=== PATIENT | female | born 1955 | race Caucasian/White ===

== ENCOUNTER 2016-04-13 08:07 | Day surgery (SDC) | payer BC ==
[2016-04-13 08:42] VITALS: BMI 41.1
[2016-04-13] MEDS ORDERED: PROPOFOL 20 ML ONE ×2 (09:38)
[2016-04-13 10:27] VITALS: TEMP 98
[2016-04-13 11:15] VITALS: BP 135/65; PULSE 60
--- NOTE | 2016-04-14 10:49 | PATH ---
Surgical Pathology Report Patient Name: ANGI ALEXANDRA [facility]. Rec. #: [id number] /Age/Gender: 1955 (Age: 60) / F Account: [id number] Location: U-ENDOSCOPY Taken: 04/13/2016 Received: 04/13/2016 Reported: 04/14/2016 Physicians: Isai Collier D.O. Specimen(s) Received A: BX TRANSVERSE COLON POLYP B: BX DESCENDING COLON POLYP Clinical History Screening colonoscopy Colon polyps Final Diagnosis A. COLON, TRANSVERSE, BIOPSY: TUBULAR ADENOMA. B. COLON, DESCENDING, BIOPSY: TUBULAR ADENOMA. Electronically Signed Philip Israel M.D. Gross Description A. Received in formalin, labeled "transverse colon polyp biopsy" are 3 henson, irregular portions of soft tissue ranging from 0.1-0.2 cm. in greatest dimension. The specimens are submitted in toto in one cassette. B. Received in formalin, labeled "biopsy descending colon polyp" is a henson, irregular portion of soft tissue measuring 0.3 cm. in greatest dimension. The specimen is submitted in toto in one cassette. /04/13/2016 saudi04/13/2016
== END 2016-04-13 11:17 | disposition home or self-care (01) ==
LOC: JASU-ENDO 08:07
PROVIDERS: ATTEND Internal Medicine Gastroenterology
PROC: 0DBL8ZX Excision of Transverse Colon, Via Natural or Artificial Opening Endoscopic, Diagnostic (ICD-10-PCS; 2016-04-13)
PROC: 0DBM8ZX Excision of Descending Colon, Via Natural or Artificial Opening Endoscopic, Diagnostic (ICD-10-PCS; principal; 2016-04-13 10:00)
DX: Z12.11 Encounter for screening for malignant neoplasm of colon (principal); D12.4 Benign neoplasm of descending colon; D12.3 Benign neoplasm of transverse colon; K64.8 Other hemorrhoids
CPT/HCPCS: 88305-TC

== ENCOUNTER 2016-12-03 00:30 | Emergency (ER) | payer OTHER, BC ==
[2016-12-03 00:59] VITALS: BP 149/100; PULSE 81; TEMP 97.5; BMI 40.7
[2016-12-03 01:42] LABS: BASOPHIL 0.4 % (0-2.0); EOSINOPHIL 2.9 % (0-4.5); MCH 29.5 pg (25.7-33.7); MCHC 33.5 g/dl (32.0-36.0); MEAN CELL VOLUME 87.9 fl (80-96); MEAN PLT VOLUME 9.6 fl (7.5-11.1); NEUTROPHILS 52.2 % (42.8-82.8); PLATELET COUNT 173 K/MM3 (134-434); RDW 13.2 % (11.6-15.6); WHITE BLOOD COUNT 5.1 K/mm3 (4.0-10.0)
[2016-12-03 01:44] LABS: URINE APPEARANCE CLEAR; URINE BILIRUBIN NEGATIVE (NEGATIVE); URINE BLOOD NEGATIVE (NEGATIVE); URINE COLOR COLORLESS; URINE GLUCOSE (UA) NEGATIVE (NEGATIVE); URINE KETONE NEGATIVE (NEGATIVE); URINE LEUK ESTERASE NEGATIVE (NEGATIVE); URINE NITRITE NEGATIVE (NEGATIVE); URINE PROTEIN NEGATIVE (NEGATIVE); URINE UROBILINOGEN NEGATIVE mg/dL (0.2-1.0)
[2016-12-03 02:10] LABS: ALBUMIN 3.7 g/dl (3.4-5.0); ANION GAP 8 (8-16); CALCIUM 8.8 mg/dL (8.5-10.1); CO2 28 mmol/L (21-32); CREATININE 0.5 mg/dL (0.55-1.02); GLUCOSE,RANDOM 117 mg/dL (74-106); SGOT/AST 17 U/L (15-37); SGPT/ALT 21 U/L (12-78)
[2016-12-03 02:14] LABS: ALK PHOS 68 U/L (45-117); BILIRUBIN,TOTAL 1.2 mg/dL (0.2-1.0); CPK 94 IU/L (26-192); TOT PROT 7.4 g/dl (6.4-8.2); TROPONIN I < 0.02 ng/ml (0.00-0.05)
[2016-12-03] MEDS ORDERED: ACETAMINOPHEN 500 MG TABLET (FP) PO ONE (02:43)
[2016-12-03] MEDS ORDERED: ACETAMINOPHEN 325 MG TABLET (FP) ONE (02:44)
--- NOTE | 2016-12-03 02:46 | PDOC ---
History of Present Illness - General Chief Complaint: Dysphagia Stated Complaint: DIFFICULTY SWALLOWING/ANXIOUS Time Seen by Provider: 12/03/16 00:41 History Source: Patient, Press Leader Used Exam Limitations: Language Barrier - History of Present Illness Initial Comments: 12/03/16 02:44 61yo Female patient w/ PmHx: HLD, HTN, Cholecystectomy, CVA (3 yrs ago) on coumadin presents to ED c/o CP, difficulty swallowing, h/a, dry mouth, left arm , tingling. Patient denies n/v/d, fever, cough, abd pain, back pain, dizziness, or any other complaints at this time. Past History - Travel Traveled outside of the country in the last 30 days: No Close contact w/someone who was outside of country & ill: No - Past Medical History Allergies/Adverse Reactions: Allergies Allergy/AdvReac Type Severity Reaction Status Date / Time No Known Allergies Allergy Verified 12/03/16 00:56 Home Medications: Ambulatory Orders Acetaminophen [Tylenol .Regular Strength -] 650 mg PO Q6H PRN #0 tablet Metoprolol Tartrate [Lopressor -] 50 mg PO BID 30 Days 12/06/13 Apixaban [Eliquis -] 5 mg PO BID tablet 12/31/13 Atorvastatin Ca [Lipitor] 20 mg PO DAILY tablet 12/31/13 Zolpidem Tartrate [Ambien] 10 mg PO HS #5 tablet 12/31/13 Cholecalciferol (Vitamin D3) [Vitamin D3 -] 1,000 unit PO DAILY 04/13/16 Meclizine HCl 12.5 mg PO PRN PRN 04/13/16 Methocarbamol [Robaxin -] 500 mg PO TID #21 tablet 12/03/16 Naproxen [Naprosyn -] 500 mg PO BID #14 tablet 12/03/16 Asthma: Yes Cardiac Disorders: Yes (a fib) CVA: Yes (L hemiparesis) HTN: Yes Hypercholesterolemia: Yes - Surgical History Cholecystectomy: Yes - Suicide/Smoking/Psychosocial Hx Smoking History: Never smoked Have you smoked in the past 12 months: No Information on smoking cessation initiated: No Hx Alcohol Use: No Drug/Substance Use Hx: No Hx Substance Use Treatment: No Review of Systems - Review of Systems Able to Perform ROS?: Yes Is the patient limited Malian proficient: No Constitutional: No: Chills, Fever Respiratory: No: Cough, Shortness of Breath, Wheezing Cardiac (ROS): Yes: Chest Pain ABD/GI: No: Diarrhea, Nausea, Poor Appetite, Poor Fluid Intake, Vomiting, Abdominal cramping Neurological: Yes: Headache All Other Systems: Reviewed and Negative *Physical Exam - Vital Signs Last Vital Signs Temp Pulse Resp BP Pulse Ox 97.5 F L 81 16 149/100 99 12/03/16 00:57 12/03/16 00:57 12/03/16 00:57 12/03/16 00:57 12/03/16 00:57 - Physical Exam General Appearance: Yes: Nourished, Appropriately Dressed. No: Apparent Distress, Mild Distress, Moderate Distress, Severe Distress Neck: positive: Trachea midline, Supple. negative: Stridor, Lymphadenopathy (R) , Lymphadenopathy (L) Respiratory/Chest: positive: Lungs Clear, Normal Breath Sounds. negative: Chest Tender, Respiratory Distress, Accessory Muscle Use, Labored Respiration, Rapid RR, Stridor, Wheezing Cardiovascular: positive: Regular Rhythm, Regular Rate Gastrointestinal/Abdominal: positive: Normal Bowel Sounds, Soft. negative: Distended, Guarding, Rebound, Tenderness Musculoskeletal: positive: Normal Inspection. negative: CVA Tenderness Extremity: positive: Normal Capillary Refill, Normal Inspection, Normal Range of Motion. negative: Pedal Edema, Swelling, Calf Tenderness, Erythema Integumentary: positive: Normal Color, Dry, Warm. negative: Rash Neurologic: positive: lease broker II-XII NML intact, Fully Oriented, Alert, Normal Mood/ Affect, Normal Response, Motor Strength 5/5 ED Treatment Course - LABORATORY CBC & Chemistry Diagram: 12/03/16 01:28 12/03/16 01:28 - ADDITIONAL ORDERS Additional order review: Laboratory Results 12/03/16 12/03/16 01:28 01:28 Sodium 139 Potassium 4.0 Chloride 103 Carbon Dioxide 28 Anion Gap 8 BUN 9 Creatinine 0.5 L Creat Clearance w eGFR > 60 Random Glucose 117 H Calcium 8.8 Total Bilirubin 1.2 H AST 17 ALT 21 Alkaline Phosphatase 68 Creatine Kinase 94 Troponin I < 0.02 Total Protein 7.4 Albumin 3.7 Urine Color Colorless Urine Appearance Clear Urine pH 6.0 Urine Protein Negative Urine Glucose (UA) Negative Urine Ketones Negative Urine Blood Negative Urine Nitrite Negative Urine Bilirubin Negative Urine Urobilinogen Negative 12/03/16 01:28 RBC 4.08 MCV 87.9 MCHC 33.5 RDW 13.2 MPV 9.6 Neutrophils % 52.2 Lymphocytes % 34.3 Monocytes % 10.2 Eosinophils % 2.9 D Basophils % 0.4 - RADIOLOGY Radiology Studies Ordered: Category Date Time Status HEAD CT WITHOUT CONTRAST [CT] Stat CT Scan 12/03/16 01:17 Taken CHEST PA & LAT [RAD] Stat Radiology 12/03/16 01:17 Taken Medical Decision Making - Medical Decision Making 12/03/16 03:15 Results discussed with patient via Double Bottom Driver. Patient to follow up with PMD. *DC/Admit/Observation/Transfer Diagnosis at time of Disposition: Anxiety about health Headache Qualifiers: Headache type: tension-type Headache chronicity pattern: unspecified pattern Intractability: not intractable Qualified Code(s): G44.209 - Tension-type headache, unspecified, not intractable - Discharge Dispostion Disposition: HOME Condition at time of disposition: Improved Admit: No - Prescriptions Prescriptions: Naproxen [Naprosyn -] 500 mg PO BID #14 tablet Methocarbamol [Robaxin -] 500 mg PO TID #21 tablet - Referrals Referrals: Ru Mobley MD [Staff Physician] - - Patient Instructions Printed Discharge Instructions: DI for Headache, DI for Anxiety -- Adult Additional Instructions: Haja un seguimiento con dumont proveedor de atencin primaria maana o dentro de las 72 horas para avtar evaluacin posterior. [place] los medicamentos segn lo prescrito. Descanse mucho. Svetlana, haja un seguimiento con dumont neurlogo o con el Dr. Mobley (Neurologa) con respecto a destiny sntomas. Llame para programar avtar latisha. Regresar si los sntomas empeoran o cualquier preocupacin por avtar evaluacin posterior. Follow up with your primary care provider tomorrow or within 72 hours for further evaluation. Take medications as prescribed. Get plenty rest. Also, follow up with your neurologist or Dr. Mobley (Neurology) regarding your symptoms. Call to schedule appointment. Return if symptoms worsen or any concerns for further evaluation. Print Language: URDU
[2016-12-03] MEDS ORDERED: METHOCARBAMOL 750 MG TAB PO ONE (03:21)
[2016-12-03] MEDS ORDERED: IBUPROFEN 600 MG TABLET (FP) PO ONE ×2 (03:21→03:36)
[2016-12-03] MEDS ORDERED: METHOCARBAMOL 500 MG TABLET ONE (03:36)
--- NOTE | 2016-12-03 09:11 | EKG ---
Test Reason : Blood Pressure : / mmHG Vent. Rate : 077 BPM Atrial Rate : 077 BPM P-R Int : 180 ms QRS Dur : 080 ms QT Int : 396 ms P-R-T Axes : 042 036 043 degrees QTc Int : 448 ms POOR DATA QUALITY, INTERPRETATION MAY BE ADVERSELY AFFECTED NORMAL SINUS RHYTHM NORMAL ECG WHEN COMPARED WITH ECG OF 17-MAR-2014 22:07, NO SIGNIFICANT CHANGE WAS FOUND Confirmed by SARAI BROCK MD ([id number]) on 12/03/2016 9:11:04 AM Referred By: Confirmed By:SARAI BROCK MD
[2016-12-03 13:02] LABS: THYROID STIMULATING HORMONE 1.93 uIU/ml (0.358-3.74)
== END 2016-12-03 04:17 | disposition home or self-care (01) ==
LOC: JER 00:30
DX: G44.209 Tension-type headache, unspecified, not intractable (principal); I10 Essential (primary) hypertension; E78.5 Hyperlipidemia, unspecified; Z79.01 Long term (current) use of anticoagulants; J45.909 Unspecified asthma, uncomplicated; I48.91 Unspecified atrial fibrillation
CPT/HCPCS: 36415; 70450-TC; 71020-TC; 80053; 81003; 84443; 84484; 85025; 93005; 93010; 99281-25

== ENCOUNTER 2018-04-19 07:07 | Day surgery (SDC) | payer OTHER, BC ==
[2018-04-18 16:22] VITALS: BMI 41.3
[2018-04-19 08:45] VITALS: TEMP 97.9
[2018-04-19 09:22] VITALS: BP 123/65; PULSE 62
--- NOTE | 2018-04-20 16:57 | PATH ---
Surgical Pathology Report Patient Name: ANGI ALEXANDRA [facility]. Rec. #: [id number] /Age/Gender: 1955 (Age: 62) / F Account: [id number] Location: U-ENDOSCOPY Taken: 04/19/2018 Received: 04/19/2018 Reported: 04/20/2018 Physicians: Lolita Sewell M.D. Specimen(s) Received A: BX DUODENUM AND BULB B: BX ANTRUM Clinical History Right upper quadrant pain Postoperative diagnosis: Gastritis Final Diagnosis A. DUODENUM AND BULB, BIOPSY: DUODENAL MUCOSA WITH MILD ACUTE AND CHRONIC DUODENITIS. B. STOMACH, ANTRUM, BIOPSY: GASTRIC ANTRAL MUCOSA WITH MILD CHRONIC ACTIVE GASTRITIS. IMMUNOHISTOCHEMICAL STAIN FOR H. PYLORI IS POSITIVE (FEW). Electronically Signed Inocencia Buckner M.D. Gross Description A. Received in formalin, labeled "duodenum and bulb biopsy" are 3 henson, irregular portions of soft tissue averaging 0.3 cm. in greatest dimension. The specimens are submitted in toto in one cassette. B. Received in formalin, labeled "antrum biopsy" are 2 henson, irregular portions of soft tissue measuring 0.2 and 0.5 cm. in greatest dimension. The specimens are submitted in toto in one cassette. 04/19/201804/19/2018
== END 2018-04-19 09:22 | disposition home or self-care (01) ==
LOC: JASU-ENDO 07:07
PROVIDERS: ATTEND Internal Medicine Gastroenterology
PROC: 0DB68ZX Excision of Stomach, Via Natural or Artificial Opening Endoscopic, Diagnostic (ICD-10-PCS; principal; 2018-04-19 08:00)
DX: K29.40 Chronic atrophic gastritis without bleeding (principal)
CPT/HCPCS: 88305-TC; 88342-TC

== ENCOUNTER 2018-12-18 11:14 | Day surgery (SDC) | payer OTHER, BC ==
[2018-12-18 12:10] VITALS: BMI 40.7
[2018-12-18 13:02] VITALS: TEMP 97
[2018-12-18 16:40] VITALS: BP 127/85; PULSE 86
== END 2018-12-18 14:12 | disposition home or self-care (01) ==
LOC: JASU-ENDO 11:14
PROVIDERS: ATTEND Internal Medicine Cardiovascular Disease
PROC: 5A2204Z Restoration of Cardiac Rhythm, Single (ICD-10-PCS; principal; 2018-12-18 11:45)
DX: I48.91 Unspecified atrial fibrillation (principal)
CPT/HCPCS: 92960

== ENCOUNTER 2019-01-15 10:56 | Day surgery (SDC) | payer OTHER, BC ==
[2019-01-15 11:34] VITALS: BMI 38.9
[2019-01-15 13:56] VITALS: BP 117/63; PULSE 59; TEMP 98
--- NOTE | 2019-01-15 15:05 | EKG ---
Test Reason : Blood Pressure : / mmHG Vent. Rate : 052 BPM Atrial Rate : 052 BPM P-R Int : 194 ms QRS Dur : 082 ms QT Int : 450 ms P-R-T Axes : 053 056 058 degrees QTc Int : 418 ms SINUS BRADYCARDIA OTHERWISE NORMAL ECG WHEN COMPARED WITH ECG OF 03-DEC-2016 01:14, VENT. RATE HAS DECREASED BY 25 BPM Confirmed by ZEUS DYE MD ([id number]) on 01/15/2019 3:05:22 PM Referred By: Confirmed By:ZEUS DYE MD
== END 2019-01-15 13:58 | disposition home or self-care (01) ==
LOC: JASU-ENDO 10:56
PROVIDERS: ATTEND Internal Medicine Cardiovascular Disease
PROC: 5A2204Z Restoration of Cardiac Rhythm, Single (ICD-10-PCS; principal; 2019-01-15 12:00)
DX: I48.91 Unspecified atrial fibrillation (principal)
CPT/HCPCS: 92960; 93005; 93010

== ENCOUNTER 2020-06-22 05:32 | Emergency (ER) | payer OTHER, BC ==
[2020-06-22] MEDS ORDERED: BENZOCAINE/MENTH/CETYLPYRD CL 1 EACH LOZENGE MM ONE ×2 (06:16→06:21)
[2020-06-22 06:28] VITALS: BP 117/71; TEMP 98.7; BMI 40.2
[2020-06-22] MEDS ORDERED: LIDOCAINE 5% TOPICAL PATCH TP ONE (06:47)
[2020-06-22 07:02] VITALS: PULSE 89
[2020-06-22] MEDS ORDERED: LIDOCAINE 5% TOPICAL PATCH ONE (07:02)
[2020-06-22] MEDS ORDERED: ACETAMINOPHEN 325 MG TABLET (FP) ONE (07:08)
[2020-06-22] MEDS ORDERED: ACETAMINOPHEN 500 MG TABLET (FP) PO ONE (07:08)
[2020-06-22] MEDS ORDERED: LIDOCAINE PATCH REMOVAL MC ONE (19:00)
== END 2020-06-22 07:16 | disposition home or self-care (01) ==
LOC: JER 05:32
DX: F41.9 Anxiety disorder, unspecified (principal)
CPT/HCPCS: 99284-25

== ENCOUNTER 2021-09-30 17:21 | Inpatient (IN) | payer OTHER, BC ==
[2021-09-30] MEDS ORDERED: FAMOTIDINE 20 MG/50 ML IVPB 20 MG/50 ML MG IVPB ONE ×2 (18:20→18:41)
[2021-09-30] MEDS ORDERED: MAG HYDROX/AL HYDROX/SIMETH -MYLANTA- ORAL SUSPENSION PO ONE (18:20)
[2021-09-30] MEDS ORDERED: ACETAMINOPHEN 1000 MG/100 ML BAG IVPB ONE (18:20)
[2021-09-30] MEDS ORDERED: ACETAMINOPHEN INJECTION 100 ML IVPB ONE (18:41)
[2021-09-30] MEDS ORDERED: MAG HYDROX/AL HYDROX/SIMETH 30 ML UNIT-DOSE CUP ONE ×2 (18:41→18:42)
[2021-09-30 19:00] LABS: CALCIUM 8.9 mg/dL (8.5-10.1)
[2021-09-30 19:01] LABS: ALBUMIN 3.6 g/dl (3.4-5.0)
[2021-09-30 19:04] LABS: CREATININE 0.7 mg/dL (0.55-1.3)
[2021-09-30 19:06] LABS: BILIRUBIN,TOTAL 1.5 mg/dL (0.2-1); TOT PROT 7.8 g/dl (6.4-8.2)
[2021-09-30 19:09] LABS: N-TERMINAL BNP 856.3 pg/ml (5-125)
[2021-09-30 19:16] LABS: BASO % 0.5 % (0-2.0); EOS % 1.4 % (0-4.5); HEMATOCRIT 36.4 % (32.4-45.2); HEMOGLOBIN 12.1 GM/dL (10.7-15.3); LYMPH % 27.8 % (8-40); MCH 29.5 pg (25.7-33.7); MCHC 33.2 g/dl (32.0-36.0); MEAN CELL VOLUME 88.9 fl (80-96); MEAN PLT VOLUME 9.6 fl (7.5-11.1); MONO % 14.1 % (3.8-10.2); NEUT % 56.2 % (42.8-82.8); PLATELET COUNT 193 10^3/uL (134-434); RBC 4.09 M/mm3 (3.60-5.2); RDW 13.3 % (11.6-15.6); WHITE BLOOD COUNT 4.4 K/mm3 (4.0-10.0)
[2021-09-30] MEDS ORDERED: ASPIRIN 81 MG CHEWABLE TABLETS PO ONE (21:54)
[2021-09-30] MEDS ORDERED: ASPIRIN 81 MG CHEWABLE TABLETS ONE (22:13)
[2021-09-30 22:38] LABS: INR 1.28 (0.83-1.09); PROTHROMBIN TIME (PATIENT) 14.7 SEC (9.7-13.0)
[2021-09-30 22:41] LABS: ACTIVATED PTT 34.8 SECONDS (25.2-36.5)
[2021-09-30] MEDS ORDERED: METOPROLOL TARTRATE 5 MG/5 ML VIAL IVPUSH PRN (23:12)
[2021-10-01] MEDS ORDERED: FUROSEMIDE 40 MG/4 ML INJECTABLE VIAL IVPUSH ONE (00:40)
[2021-10-01 06:57] LABS: BASO % 0.4 % (0-2.0); EOS % 2.9 % (0-4.5); HEMOGLOBIN 12.5 GM/dL (10.7-15.3); LYMPH % 42.5 % (8-40); MCH 29.2 pg (25.7-33.7); MCHC 32.8 g/dl (32.0-36.0); MEAN CELL VOLUME 88.9 fl (80-96); MEAN PLT VOLUME 11.1 fl (7.5-11.1); MONO % 9.7 % (3.8-10.2); NEUT % 44.5 % (42.8-82.8); PLATELET COUNT 153 10^3/uL (134-434); RBC 4.28 M/mm3 (3.60-5.2); RDW 14.1 % (11.6-15.6); WHITE BLOOD COUNT 4.7 K/mm3 (4.0-10.0)
[2021-10-01 07:17] LABS: CALCIUM 9.3 mg/dL (8.5-10.1)
[2021-10-01 07:18] LABS: ALBUMIN 3.8 g/dl (3.4-5.0); BLOOD UREA NITROGEN 8.5 mg/dL (7-18); MAGNESIUM 2.2 mg/dL (1.8-2.4)
[2021-10-01 07:21] LABS: CREATININE 0.7 mg/dL (0.55-1.3); PHOSPHOROUS 3.9 mg/dL (2.5-4.9)
[2021-10-01 07:23] LABS: BILIRUBIN,TOTAL 1.7 mg/dL (0.2-1); TOT PROT 8.2 g/dl (6.4-8.2)
[2021-10-01 07:24] LABS: CHOLESTEROL 130 mg/dL (50-200)
[2021-10-01 07:26] LABS: LDL CHOLESTEROL (ONLY SJRH) 58 mg/dL (5-100); TRIGLYCERIDES 84 mg/dL (0-150)
[2021-10-01 07:29] LABS: HDL CHOLESTEROL 66 mg/dL (40-60)
[2021-10-01] MEDS ORDERED: APIXABAN 5 MG TABLET ONE (10:28)
[2021-10-01] MEDS: APIXABAN 5 MG TABLET PO SCH ×2 (10:37→22:38)
[2021-10-01] MEDS ORDERED: MAG HYDROX/AL HYDROX/SIMETH 30 ML UNIT-DOSE CUP ONE (14:22)
[2021-10-01] MEDS: ATORVASTATIN CA 20 MG TABLET (FP) PO SCH (22:38)
[2021-10-01 23:26] VITALS: BMI 40.7
[2021-10-02] MEDS: APIXABAN 5 MG TABLET PO SCH ×2 (09:07→21:47)
[2021-10-02] MEDS ORDERED: metoPROLOL SUCCINATE 25 MG TAB.SR.24H (FP) PO ONE ×2 (13:15→15:30)
[2021-10-02] MEDS: SOTALOL HCL 80 MG TABLET (FP) PO SCH (21:47)
[2021-10-02] MEDS: ATORVASTATIN CA 20 MG TABLET (FP) PO SCH (21:48)
[2021-10-03] MEDS: SOTALOL HCL 80 MG TABLET (FP) PO SCH ×2 (09:42→21:25)
[2021-10-03] MEDS: APIXABAN 5 MG TABLET PO SCH ×2 (09:42→21:24)
[2021-10-03] MEDS: PREGABALIN 25 MG CAPSULE PO SCH (21:24)
[2021-10-03] MEDS: ATORVASTATIN CA 20 MG TABLET (FP) PO SCH (21:24)
[2021-10-04 07:45] LABS: BASO % 0.4 % (0-2.0); EOS % 4.8 % (0-4.5); HEMATOCRIT 34.8 % (32.4-45.2); HEMOGLOBIN 11.5 GM/dL (10.7-15.3); LYMPH % 42.8 % (8-40); MCH 29.4 pg (25.7-33.7); MEAN CELL VOLUME 89.3 fl (80-96); MEAN PLT VOLUME 10.3 fl (7.5-11.1); MONO % 12.1 % (3.8-10.2); NEUT % 39.9 % (42.8-82.8); PLATELET COUNT 168 10^3/uL (134-434); RDW 13.7 % (11.6-15.6); WHITE BLOOD COUNT 4.7 K/mm3 (4.0-10.0)
[2021-10-04 07:50] LABS: CALCIUM 8.8 mg/dL (8.5-10.1)
[2021-10-04 07:51] LABS: BLOOD UREA NITROGEN 12.1 mg/dL (7-18); MAGNESIUM 2.4 mg/dL (1.8-2.4)
[2021-10-04 07:54] LABS: CREATININE 0.6 mg/dL (0.55-1.3); PHOSPHOROUS 4.3 mg/dL (2.5-4.9)
[2021-10-04] MEDS: SOTALOL HCL 80 MG TABLET (FP) PO SCH ×2 (09:26→21:53)
[2021-10-04] MEDS: APIXABAN 5 MG TABLET PO SCH ×2 (09:26→21:53)
[2021-10-04] MEDS: ATORVASTATIN CA 20 MG TABLET (FP) PO SCH (21:53)
[2021-10-04] MEDS: PREGABALIN 25 MG CAPSULE PO SCH (21:53)
[2021-10-05 08:15] LABS: HEMATOCRIT 34.8 % (32.4-45.2); HEMOGLOBIN 11.5 GM/dL (10.7-15.3); MCH 29.5 pg (25.7-33.7); MCHC 33.1 g/dl (32.0-36.0); MEAN CELL VOLUME 89.3 fl (80-96); MEAN PLT VOLUME 10.3 fl (7.5-11.1); PLATELET COUNT 167 10^3/uL (134-434); RDW 13.3 % (11.6-15.6); WHITE BLOOD COUNT 4.6 K/mm3 (4.0-10.0)
[2021-10-05 08:38] LABS: ALBUMIN 3.4 g/dl (3.4-5.0); CALCIUM 8.8 mg/dL (8.5-10.1); MAGNESIUM 2.4 mg/dL (1.8-2.4)
[2021-10-05 08:41] LABS: BLOOD UREA NITROGEN 13.5 mg/dL (7-18); CREATININE 0.6 mg/dL (0.55-1.3)
[2021-10-05 08:43] LABS: BILIRUBIN,TOTAL 1.4 mg/dL (0.2-1)
[2021-10-05] MEDS: APIXABAN 5 MG TABLET PO SCH ×2 (10:19→21:33)
[2021-10-05] MEDS: SOTALOL HCL 80 MG TABLET (FP) PO SCH ×2 (10:19→21:34)
[2021-10-05] MEDS: PREGABALIN 25 MG CAPSULE PO SCH (21:32)
[2021-10-05] MEDS: ATORVASTATIN CA 20 MG TABLET (FP) PO SCH (21:33)
[2021-10-06 07:20] LABS: BASO % 0.4 % (0-2.0); EOS % 2.9 % (0-4.5); HEMATOCRIT 34.8 % (32.4-45.2); HEMOGLOBIN 11.4 GM/dL (10.7-15.3); LYMPH % 41.6 % (8-40); MCH 29.3 pg (25.7-33.7); MCHC 32.7 g/dl (32.0-36.0); MEAN CELL VOLUME 89.4 fl (80-96); MEAN PLT VOLUME 10.7 fl (7.5-11.1); MONO % 10.4 % (3.8-10.2); NEUT % 44.7 % (42.8-82.8); PLATELET COUNT 168 10^3/uL (134-434); RBC 3.89 M/mm3 (3.60-5.2); RDW 13.4 % (11.6-15.6); WHITE BLOOD COUNT 4.6 K/mm3 (4.0-10.0)
[2021-10-06 07:42] LABS: CALCIUM 8.8 mg/dL (8.5-10.1)
[2021-10-06 07:43] LABS: ALBUMIN 3.3 g/dl (3.4-5.0); BLOOD UREA NITROGEN 13.6 mg/dL (7-18); MAGNESIUM 2.3 mg/dL (1.8-2.4)
[2021-10-06 07:46] LABS: CREATININE 0.6 mg/dL (0.55-1.3)
[2021-10-06 07:47] LABS: BILIRUBIN,TOTAL 1.6 mg/dL (0.2-1)
[2021-10-06] MEDS: APIXABAN 5 MG TABLET PO SCH ×2 (09:09→21:49)
[2021-10-06] MEDS: SOTALOL HCL 80 MG TABLET (FP) PO SCH ×3 (09:09→21:49)
[2021-10-06 20:35] VITALS: RESP 20
[2021-10-06] MEDS: ATORVASTATIN CA 20 MG TABLET (FP) PO SCH (21:48)
[2021-10-06] MEDS: PREGABALIN 25 MG CAPSULE PO SCH (21:48)
[2021-10-07] MEDS ORDERED: ACETAMINOPHEN 325 MG TABLET (FP) PO PRN (00:26)
[2021-10-07] MEDS ORDERED: ACETAMINOPHEN 325 MG TABLET (FP) ONE (00:38)
[2021-10-07 07:32] LABS: BASO % 0.4 % (0-2.0); EOS % 2.6 % (0-4.5); HEMATOCRIT 32.7 % (32.4-45.2); HEMOGLOBIN 10.8 GM/dL (10.7-15.3); LYMPH % 34.9 % (8-40); MCH 29.7 pg (25.7-33.7); MCHC 33.1 g/dl (32.0-36.0); MEAN CELL VOLUME 89.7 fl (80-96); MONO % 11.4 % (3.8-10.2); NEUT % 50.7 % (42.8-82.8); PLATELET COUNT 157 10^3/uL (134-434); RBC 3.65 M/mm3 (3.60-5.2); RDW 13.3 % (11.6-15.6); WHITE BLOOD COUNT 5.1 K/mm3 (4.0-10.0)
[2021-10-07 07:58] LABS: CALCIUM 8.5 mg/dL (8.5-10.1)
[2021-10-07 07:59] LABS: ALBUMIN 3.2 g/dl (3.4-5.0); BLOOD UREA NITROGEN 15.7 mg/dL (7-18); MAGNESIUM 2.3 mg/dL (1.8-2.4)
[2021-10-07 08:02] LABS: CREATININE 0.6 mg/dL (0.55-1.3)
[2021-10-07 08:03] LABS: TOT PROT 6.9 g/dl (6.4-8.2)
[2021-10-07 08:04] LABS: BILIRUBIN,TOTAL 1.8 mg/dL (0.2-1)
[2021-10-07] MEDS: SOTALOL HCL 80 MG TABLET (FP) PO SCH (09:19)
[2021-10-07] MEDS: APIXABAN 5 MG TABLET PO SCH (09:19)
[2021-10-07 13:32] LABS: BILIRUBIN,DIRECT 0.4 mg/dL (0.0-0.2)
[2021-10-07 18:43] VITALS: BP 127/55; PULSE 57; TEMP 98.2
[2021-10-07] MEDS ORDERED: FLUTICASONE PROP 0.05% 16 GM NASAL SPRAY NS SCH (18:45)
== END 2021-10-07 19:15 | disposition home or self-care (01) | DRG 291 ==
LOC: JER 17:21 → JERBED 21:19 → J4W 10-01 21:27 → OBSVTOIN 10-02 12:54
PROVIDERS: ADMIT Internal Medicine; ATTEND Internal Medicine
PROC: 5A2204Z Restoration of Cardiac Rhythm, Single (ICD-10-PCS; principal; 2021-10-06 10:15)
DX: I11.0 Hypertensive heart disease with heart failure (principal); I50.31 Acute diastolic (congestive) heart failure; I48.19 Other persistent atrial fibrillation; Z68.41 Body mass index [BMI] 40.0-44.9, adult; R00.2 Palpitations; R06.02 Shortness of breath; E78.5 Hyperlipidemia, unspecified; I27.20 Pulmonary hypertension, unspecified; R60.0 Localized edema; E66.01 Morbid (severe) obesity due to excess calories; J45.909 Unspecified asthma, uncomplicated; M54.12 Radiculopathy, cervical region
CPT/HCPCS: 36415; 71045-TC-FY; 71275-TC; 80048; 80053; 80061; 82248; 83036; 83690; 83735; 83880; 84100; 84443; 84484; 85025; 85027; 85610; 85730; 87086; 93005; 93010; 93306-TC; 93970-TC; 97116-GP; 97162-GP; 99285-25; C9803-CS; G0378; Q9967; U0003; U0005

== ENCOUNTER 2022-08-03 18:30 | Emergency (ER) | payer OTHER, BC ==
[2022-08-03 18:40] VITALS: RESP 16; BMI 34.3
[2022-08-03 20:25] LABS: BASO % 0.6 % (0-2.0); HEMATOCRIT 36.1 % (32.4-45.2); LYMPH % 34.2 % (8-40); MCH 30.1 pg (25.7-33.7); MCHC 33.2 g/dl (32.0-36.0); MEAN CELL VOLUME 90.6 fl (80-96); MEAN PLT VOLUME 9.4 fl (7.5-11.1); MONO % 12.1 % (3.8-10.2); NEUT % 50.1 % (42.8-82.8); PLATELET COUNT 184 10^3/uL (134-434); RBC 3.98 M/mm3 (3.60-5.2); RDW 14.2 % (11.6-15.6); URINE APPEARANCE CLEAR; URINE BILIRUBIN NEGATIVE (NEGATIVE); URINE COLOR YELLOW; URINE GLUCOSE (UA) NEGATIVE (NEGATIVE); URINE KETONE NEGATIVE (NEGATIVE); URINE LEUK ESTERASE NEGATIVE (NEGATIVE); URINE NITRITE NEGATIVE (NEGATIVE); URINE PROTEIN NEGATIVE (NEGATIVE)
[2022-08-03 20:36] LABS: INR 1.29 (0.83-1.09); PROTHROMBIN TIME (PATIENT) 14.9 SEC (9.7-13.0)
[2022-08-03 20:38] LABS: ACTIVATED PTT 37.6 SECONDS (25.2-36.5)
[2022-08-03 20:47] LABS: POTASSIUM 4.3 mmol/L (3.5-5.1)
[2022-08-03 20:49] LABS: CALCIUM 9.2 mg/dL (8.5-10.1)
[2022-08-03 20:51] LABS: ALBUMIN 3.6 g/dl (3.4-5.0); BLOOD UREA NITROGEN 7.4 mg/dL (7-18)
[2022-08-03 20:52] LABS: CREATININE 0.6 mg/dL (0.55-1.3)
[2022-08-03 20:54] LABS: BILIRUBIN,TOTAL 1.5 mg/dL (0.2-1); TOT PROT 7.7 g/dl (6.4-8.2)
[2022-08-03 23:18] VITALS: BP 126/61; PULSE 80; TEMP 98.3
[2022-08-04] MEDS ORDERED: ACETAMINOPHEN 1000 MG/100 ML BAG IVPB ONE (00:51)
[2022-08-04] MEDS ORDERED: FAMOTIDINE 20 MG/50 ML IVPB 20 MG/50 ML MG IVPB ONE ×2 (00:51→00:52)
[2022-08-04] MEDS ORDERED: ACETAMINOPHEN INJECTION 100 ML IVPB ONE (00:52)
[2022-08-04] MEDS ORDERED: FAMOTIDINE 20 MG TABLET ONE (00:54)
[2022-08-04] MEDS ORDERED: ACETAMINOPHEN 325 MG TABLET (FP) ONE (00:54)
== END 2022-08-04 01:10 | disposition home or self-care (01) ==
LOC: JER 18:30
PROC: 3E033GC Introduction of Other Therapeutic Substance into Peripheral Vein, Percutaneous Approach (ICD-10-PCS; principal; 2022-08-03)
PROC: 3E033NZ Introduction of Analgesics, Hypnotics, Sedatives into Peripheral Vein, Percutaneous Approach (ICD-10-PCS; 2022-08-03)
DX: R10.11 Right upper quadrant pain (principal)
CPT/HCPCS: 36415; 71046-TC-FY; 74177-TC; 76705-TC; 80053; 81003; 83605; 83690; 84484; 85025; 85610; 85730; 86850; 86900; 86901; 87086; 93005; 93010; 96365; 96375; 99285-25; Q9967

== ENCOUNTER 2023-02-19 18:16 | Inpatient (IN) | payer OTHER, BC ==
[2023-02-19] MEDS ORDERED: SODIUM CHLORIDE 1,000 ML IV STA (19:03)
[2023-02-19] MEDS ORDERED: ALBUTEROL SO4 2.5/IPRATROPIUM 0.5 INH SOL 3 ML VIAL.NEB. NEB ONE ×2 (19:24→19:34)
[2023-02-19] MEDS ORDERED: methylPREDNISolone NA SUCC 125 MG/2 ML VIAL IVPUSH ONE (19:24)
[2023-02-19] MEDS ORDERED: ACETAMINOPHEN 1000 MG/100 ML BAG IVPB ONE (19:25)
[2023-02-19 19:31] LABS: BASO % 0.4 % (0-2.0); EOS % 1.3 % (0-4.5); HEMOGLOBIN 12.6 GM/dL (10.7-15.3); LYMPH % 19.2 % (8-40); MCH 29.4 pg (25.7-33.7); MEAN CELL VOLUME 88.9 fl (80-96); MEAN PLT VOLUME 9.7 fl (7.5-11.1); MONO % 15.5 % (3.8-10.2); NEUT % 63.6 % (42.8-82.8); PLATELET COUNT 132 10^3/uL (134-434); RBC 4.28 M/mm3 (3.60-5.2); WHITE BLOOD COUNT 4.9 K/mm3 (4.0-10.0)
[2023-02-19] MEDS ORDERED: methylPREDNISolone NA SUCC 125 MG/2 ML VIAL ONE (19:34)
[2023-02-19] MEDS ORDERED: ACETAMINOPHEN INJECTION 100 ML IVPB ONE (19:34)
[2023-02-19 19:51] LABS: POTASSIUM 3.9 mmol/L (3.5-5.1)
[2023-02-19 19:53] LABS: ALBUMIN 3.4 g/dl (3.4-5.0); CALCIUM 8.8 mg/dL (8.5-10.1)
[2023-02-19 19:56] LABS: CREATININE 0.8 mg/dL (0.55-1.3)
[2023-02-19 19:58] LABS: BILIRUBIN,TOTAL 1.8 mg/dL (0.2-1); TOT PROT 7.4 g/dl (6.4-8.2)
[2023-02-19] MEDS ORDERED: METOPROLOL TARTRATE 25 MG TABLET (FP) PO ONE (20:45)
[2023-02-19] MEDS ORDERED: METOPROLOL TARTRATE 25 MG TABLET (FP) ONE (20:48)
[2023-02-19] MEDS ORDERED: METOPROLOL TARTRATE 5 MG/5 ML VIAL IVPUSH ONE (20:58)
[2023-02-19] MEDS ORDERED: METOPROLOL TARTRATE 5 MG/5 ML VIAL ONE (21:02)
[2023-02-20] MEDS ORDERED: REMDESIVIR 200 MG in SODIUM CHLORIDE 250 ML IVPB ONE (00:45)
[2023-02-20] MEDS ORDERED: APIXABAN 5 MG TABLET PO ONE (01:09)
[2023-02-20] MEDS: dilTIAZem HCL 30 MG TABLET PO SCH ×4 (01:47→21:02)
[2023-02-20 04:29] VITALS: BMI 40.8
[2023-02-20 07:28] LABS: HEMATOCRIT 35.7 % (32.4-45.2); HEMOGLOBIN 11.7 GM/dL (10.7-15.3); MCH 29.6 pg (25.7-33.7); MCHC 32.9 g/dl (32.0-36.0); MEAN PLT VOLUME 10.7 fl (7.5-11.1); PLATELET COUNT 121 10^3/uL (134-434); RBC 3.96 M/mm3 (3.60-5.2); RDW 13.5 % (11.6-15.6); WHITE BLOOD COUNT 3.8 K/mm3 (4.0-10.0)
[2023-02-20 07:49] LABS: POTASSIUM 3.8 mmol/L (3.5-5.1)
[2023-02-20 07:50] LABS: BLOOD UREA NITROGEN 9.6 mg/dL (7-18); CALCIUM 8.3 mg/dL (8.5-10.1)
[2023-02-20 07:53] LABS: CREATININE 0.8 mg/dL (0.55-1.3)
[2023-02-20 07:55] LABS: BILIRUBIN,TOTAL 1.1 mg/dL (0.2-1)
[2023-02-20] MEDS ORDERED: ALBUTEROL SO4 HFA INHALER IH SCH (08:00)
[2023-02-20] MEDS: DULoxetine HCL 20 MG CAPSULE.DR PO SCH ×2 (09:05→09:44)
[2023-02-20] MEDS: APIXABAN 5 MG TABLET PO SCH ×2 (09:06→21:01)
[2023-02-20] MEDS: DEXAMETHASONE 4 MG TABLET (FP) PO SCH (09:06)
[2023-02-20] MEDS ORDERED: ATORVASTATIN CA 20 MG TABLET (FP) PO SCH (10:00)
[2023-02-20] MEDS ORDERED: dilTIAZem HCL 30 MG TABLET PO SCH (10:00)
[2023-02-20] MEDS: IPRATROPIUM BR 0.02% 0.5 MG/2.5 ML VIAL.NEB. NEB SCH ×3 (11:28→20:05)
[2023-02-20] MEDS: SENNOSIDES 8.6MG TABLET (FP) PO SCH ×2 (11:37→21:01)
[2023-02-20] MEDS: PREGABALIN 75 MG CAPSULE PO SCH (21:34)
[2023-02-20] MEDS: ATORVASTATIN CA 10 MG TABLET (FP) PO SCH (21:34)
[2023-02-21] MEDS: dilTIAZem HCL 30 MG TABLET PO SCH ×3 (05:54→21:35)
[2023-02-21] MEDS: IPRATROPIUM BR 0.02% 0.5 MG/2.5 ML VIAL.NEB. NEB SCH ×4 (07:30→19:42)
[2023-02-21 08:32] LABS: BASO % 0.1 % (0-2.0); HEMATOCRIT 35.7 % (32.4-45.2); HEMOGLOBIN 11.8 GM/dL (10.7-15.3); LYMPH % 10.5 % (8-40); MCH 29.6 pg (25.7-33.7); MEAN CELL VOLUME 89.6 fl (80-96); MEAN PLT VOLUME 10.5 fl (7.5-11.1); MONO % 5.6 % (3.8-10.2); NEUT % 83.8 % (42.8-82.8); PLATELET COUNT 142 10^3/uL (134-434); RBC 3.98 M/mm3 (3.60-5.2); RDW 14.1 % (11.6-15.6); WHITE BLOOD COUNT 9.3 K/mm3 (4.0-10.0)
[2023-02-21 08:44] LABS: POTASSIUM 4.1 mmol/L (3.5-5.1)
[2023-02-21 09:01] LABS: BLOOD UREA NITROGEN 10.5 mg/dL (7-18); CALCIUM 8.6 mg/dL (8.5-10.1); MAGNESIUM 2.2 mg/dL (1.8-2.4)
[2023-02-21 09:04] LABS: CREATININE 0.6 mg/dL (0.55-1.3); PHOSPHOROUS 2.5 mg/dL (2.5-4.9)
[2023-02-21] MEDS: APIXABAN 5 MG TABLET PO SCH ×2 (10:05→21:35)
[2023-02-21] MEDS: SENNOSIDES 8.6MG TABLET (FP) PO SCH ×2 (10:05→21:36)
[2023-02-21] MEDS: DULoxetine HCL 20 MG CAPSULE.DR PO SCH (10:05)
[2023-02-21] MEDS: DEXAMETHASONE 4 MG TABLET (FP) PO SCH (10:05)
[2023-02-21] MEDS: REMDESIVIR 100 MG in SODIUM CHLORIDE 250 ML IVPB SCH (10:09)
[2023-02-21] MEDS ORDERED: POLYETHYLENE GLYCOL (HEALTHYLAX) 3350 17 GM PACKET PO SCH (10:15)
[2023-02-21] MEDS: ATORVASTATIN CA 10 MG TABLET (FP) PO SCH (21:35)
[2023-02-21] MEDS: PREGABALIN 75 MG CAPSULE PO SCH (21:36)
[2023-02-22] MEDS: dilTIAZem HCL 30 MG TABLET PO SCH ×3 (06:28→21:01)
[2023-02-22] MEDS: IPRATROPIUM BR 0.02% 0.5 MG/2.5 ML VIAL.NEB. NEB SCH ×4 (07:50→20:05)
[2023-02-22] MEDS: APIXABAN 5 MG TABLET PO SCH ×2 (09:44→21:01)
[2023-02-22] MEDS: DULoxetine HCL 20 MG CAPSULE.DR PO SCH (09:44)
[2023-02-22] MEDS: DEXAMETHASONE 4 MG TABLET (FP) PO SCH (09:45)
[2023-02-22] MEDS: SENNOSIDES 8.6MG TABLET (FP) PO SCH ×2 (09:47→21:01)
[2023-02-22] MEDS: POLYETHYLENE GLYCOL (HEALTHYLAX) 3350 17 GM PACKET PO SCH (09:47)
[2023-02-22] MEDS: REMDESIVIR 100 MG in SODIUM CHLORIDE 250 ML IVPB SCH (09:48)
[2023-02-22] MEDS ORDERED: ALBUTEROL SO4 0.5 % INH SOLN 2.5 MG/0.5 ML VIAL.NEB. NEB PRN (10:56)
[2023-02-22] MEDS: SODIUM CHLORIDE 1,000 ML IV SCH (13:02)
[2023-02-22] MEDS: ATORVASTATIN CA 10 MG TABLET (FP) PO SCH (21:01)
[2023-02-22] MEDS: PREGABALIN 75 MG CAPSULE PO SCH (21:01)
[2023-02-23] MEDS: dilTIAZem HCL 30 MG TABLET PO SCH ×3 (05:34→21:00)
[2023-02-23] MEDS: IPRATROPIUM BR 0.02% 0.5 MG/2.5 ML VIAL.NEB. NEB SCH ×4 (08:10→20:36)
[2023-02-23] MEDS: REMDESIVIR 100 MG in SODIUM CHLORIDE 250 ML IVPB SCH (09:53)
[2023-02-23] MEDS: DULoxetine HCL 20 MG CAPSULE.DR PO SCH (09:54)
[2023-02-23] MEDS: DEXAMETHASONE 4 MG TABLET (FP) PO SCH (09:55)
[2023-02-23] MEDS: POLYETHYLENE GLYCOL (HEALTHYLAX) 3350 17 GM PACKET PO SCH (09:55)
[2023-02-23] MEDS: APIXABAN 5 MG TABLET PO SCH ×2 (09:55→21:01)
[2023-02-23] MEDS: SENNOSIDES 8.6MG TABLET (FP) PO SCH ×2 (09:55→21:01)
[2023-02-23] MEDS ORDERED: BISACODYL 5 MG TABLET.DR (FP) PO PRN (14:38)
[2023-02-23] MEDS: SODIUM CHLORIDE 1,000 ML IV SCH (15:32)
[2023-02-23] MEDS: guaiFENesin 600 MG TABLET.ER (FP) PO SCH (21:00)
[2023-02-23] MEDS: PREGABALIN 75 MG CAPSULE PO SCH (21:00)
[2023-02-23] MEDS: ATORVASTATIN CA 10 MG TABLET (FP) PO SCH (21:01)
[2023-02-24] MEDS: dilTIAZem HCL 30 MG TABLET PO SCH (06:17)
[2023-02-24] MEDS: IPRATROPIUM BR 0.02% 0.5 MG/2.5 ML VIAL.NEB. NEB SCH ×4 (07:50→20:05)
[2023-02-24 08:25] LABS: HEMATOCRIT 38.2 % (32.4-45.2); HEMOGLOBIN 12.6 GM/dL (10.7-15.3); MCH 29.5 pg (25.7-33.7); MCHC 33.1 g/dl (32.0-36.0); MEAN CELL VOLUME 88.9 fl (80-96); MEAN PLT VOLUME 10.8 fl (7.5-11.1); PLATELET COUNT 175 10^3/uL (134-434); RBC 4.29 M/mm3 (3.60-5.2); RDW 13.8 % (11.6-15.6); WHITE BLOOD COUNT 4.9 K/mm3 (4.0-10.0)
[2023-02-24 08:46] LABS: POTASSIUM 4.1 mmol/L (3.5-5.1)
[2023-02-24 08:56] LABS: CALCIUM 8.5 mg/dL (8.5-10.1)
[2023-02-24 08:57] LABS: ALBUMIN 2.8 g/dl (3.4-5.0); BLOOD UREA NITROGEN 16.9 mg/dL (7-18)
[2023-02-24 09:00] LABS: CREATININE 0.7 mg/dL (0.55-1.3)
[2023-02-24 09:01] LABS: BILIRUBIN,TOTAL 1.2 mg/dL (0.2-1)
[2023-02-24 09:02] LABS: TOT PROT 6.9 g/dl (6.4-8.2)
[2023-02-24] MEDS: DULoxetine HCL 20 MG CAPSULE.DR PO SCH (09:27)
[2023-02-24] MEDS: guaiFENesin 600 MG TABLET.ER (FP) PO SCH ×2 (09:27→21:10)
[2023-02-24] MEDS: DEXAMETHASONE 4 MG TABLET (FP) PO SCH (09:27)
[2023-02-24] MEDS: APIXABAN 5 MG TABLET PO SCH ×2 (09:27→21:10)
[2023-02-24] MEDS: SENNOSIDES 8.6MG TABLET (FP) PO SCH ×2 (09:28→21:10)
[2023-02-24] MEDS: POLYETHYLENE GLYCOL (HEALTHYLAX) 3350 17 GM PACKET PO SCH (09:28)
[2023-02-24] MEDS: REMDESIVIR 100 MG in SODIUM CHLORIDE 250 ML IVPB SCH (09:33)
[2023-02-24] MEDS ORDERED: MAGNESIUM CITRATE 300 ML BOTTLE PO ONE (16:00)
[2023-02-24] MEDS: SODIUM CHLORIDE 1,000 ML IV SCH (21:09)
[2023-02-24] MEDS: ATORVASTATIN CA 10 MG TABLET (FP) PO SCH (21:10)
[2023-02-24] MEDS: PREGABALIN 75 MG CAPSULE PO SCH (21:10)
[2023-02-24] MEDS ORDERED: metoPROLOL SUCCINATE 25 MG TAB.SR.24H (FP) PO SCH (22:00)
[2023-02-25] MEDS: IPRATROPIUM BR 0.02% 0.5 MG/2.5 ML VIAL.NEB. NEB SCH ×4 (09:07→20:15)
[2023-02-25 09:10] LABS: HEMATOCRIT 41.8 % (32.4-45.2); HEMOGLOBIN 13.8 GM/dL (10.7-15.3); MCH 29.4 pg (25.7-33.7); MCHC 32.9 g/dl (32.0-36.0); MEAN CELL VOLUME 89.2 fl (80-96); MEAN PLT VOLUME 10.1 fl (7.5-11.1); PLATELET COUNT 199 10^3/uL (134-434); RBC 4.69 M/mm3 (3.60-5.2); RDW 13.5 % (11.6-15.6); WHITE BLOOD COUNT 6.1 K/mm3 (4.0-10.0)
[2023-02-25 09:16] LABS: POTASSIUM 4.7 mmol/L (3.5-5.1)
[2023-02-25 09:18] LABS: ALBUMIN 3.1 g/dl (3.4-5.0); CALCIUM 8.8 mg/dL (8.5-10.1)
[2023-02-25 09:22] LABS: CREATININE 0.7 mg/dL (0.55-1.3)
[2023-02-25 09:23] LABS: BILIRUBIN,TOTAL 1.1 mg/dL (0.2-1); TOT PROT 7.5 g/dl (6.4-8.2)
[2023-02-25] MEDS: DULoxetine HCL 20 MG CAPSULE.DR PO SCH (10:23)
[2023-02-25] MEDS: APIXABAN 5 MG TABLET PO SCH ×2 (10:23→21:22)
[2023-02-25] MEDS: SENNOSIDES 8.6MG TABLET (FP) PO SCH ×2 (10:23→21:23)
[2023-02-25] MEDS: DEXAMETHASONE 4 MG TABLET (FP) PO SCH (10:23)
[2023-02-25] MEDS: guaiFENesin 600 MG TABLET.ER (FP) PO SCH ×2 (10:26→21:22)
[2023-02-25] MEDS: ACETAMINOPHEN 325 MG TABLET (FP) PO PRN ×2 (11:34→21:24)
[2023-02-25] MEDS: methylPREDNISolone NA SUCC 40 MG/1 ML VIAL IVPUSH SCH (18:47)
[2023-02-25] MEDS: AZITHROMYCIN 250 MG TABLET PO SCH (18:47)
[2023-02-25 19:19] LABS: BILIRUBIN,DIRECT 0.3 mg/dL (0.0-0.2)
[2023-02-25] MEDS: ATORVASTATIN CA 10 MG TABLET (FP) PO SCH (21:22)
[2023-02-25] MEDS: metoPROLOL SUCCINATE 25 MG TAB.SR.24H (FP) PO SCH (21:23)
[2023-02-25] MEDS: PREGABALIN 75 MG CAPSULE PO SCH (21:24)
[2023-02-26] MEDS: methylPREDNISolone NA SUCC 40 MG/1 ML VIAL IVPUSH SCH ×3 (01:20→18:12)
[2023-02-26] MEDS: IPRATROPIUM BR 0.02% 0.5 MG/2.5 ML VIAL.NEB. NEB SCH ×4 (08:06→20:01)
[2023-02-26 08:16] LABS: HEMATOCRIT 42.5 % (32.4-45.2); MCH 29.5 pg (25.7-33.7); MCHC 32.9 g/dl (32.0-36.0); MEAN CELL VOLUME 89.5 fl (80-96); MEAN PLT VOLUME 10.5 fl (7.5-11.1); PLATELET COUNT 206 10^3/uL (134-434); RBC 4.75 M/mm3 (3.60-5.2); RDW 13.6 % (11.6-15.6); WHITE BLOOD COUNT 6.3 K/mm3 (4.0-10.0)
[2023-02-26 08:37] LABS: MAGNESIUM 2.5 mg/dL (1.8-2.4)
[2023-02-26 08:41] LABS: PHOSPHOROUS 4.1 mg/dL (2.5-4.9)
[2023-02-26] MEDS: DULoxetine HCL 20 MG CAPSULE.DR PO SCH (10:10)
[2023-02-26] MEDS: AZITHROMYCIN 250 MG TABLET PO SCH (10:11)
[2023-02-26] MEDS: metoPROLOL SUCCINATE 25 MG TAB.SR.24H (FP) PO SCH ×2 (10:11→21:48)
[2023-02-26] MEDS: guaiFENesin 600 MG TABLET.ER (FP) PO SCH ×2 (10:11→21:48)
[2023-02-26] MEDS: APIXABAN 5 MG TABLET PO SCH ×2 (10:12→21:48)
[2023-02-26] MEDS: SENNOSIDES 8.6MG TABLET (FP) PO SCH ×2 (12:12→21:47)
[2023-02-26] MEDS: PREGABALIN 75 MG CAPSULE PO SCH (21:47)
[2023-02-26] MEDS: ATORVASTATIN CA 10 MG TABLET (FP) PO SCH (21:47)
[2023-02-27] MEDS: methylPREDNISolone NA SUCC 40 MG/1 ML VIAL IVPUSH SCH ×3 (01:06→18:20)
[2023-02-27] MEDS: IPRATROPIUM BR 0.02% 0.5 MG/2.5 ML VIAL.NEB. NEB SCH ×4 (07:17→20:17)
[2023-02-27] MEDS: DULoxetine HCL 20 MG CAPSULE.DR PO SCH (10:47)
[2023-02-27] MEDS: metoPROLOL SUCCINATE 25 MG TAB.SR.24H (FP) PO SCH ×2 (10:48→21:21)
[2023-02-27] MEDS: SENNOSIDES 8.6MG TABLET (FP) PO SCH ×2 (10:48→21:21)
[2023-02-27] MEDS: APIXABAN 5 MG TABLET PO SCH ×2 (10:48→21:21)
[2023-02-27] MEDS: guaiFENesin 600 MG TABLET.ER (FP) PO SCH ×2 (10:49→21:21)
[2023-02-27] MEDS: AZITHROMYCIN 250 MG TABLET PO SCH (10:49)
[2023-02-27] MEDS: BUDESONIDE/FORMETEROL FUMARATE 160/4.5 mcg INHALER IH SCH ×2 (11:49→21:24)
[2023-02-27] MEDS ORDERED: LACTULOSE 20 GM/30 ML UDC (FOR ORAL USE ONLY) PO ONE (12:06)
[2023-02-27] MEDS ORDERED: dilTIAZem HCL 30 MG TABLET PO ONE (12:10)
[2023-02-27] MEDS: PREGABALIN 75 MG CAPSULE PO SCH (21:20)
[2023-02-27] MEDS: dilTIAZem HCL 30 MG TABLET PO SCH (21:20)
[2023-02-27] MEDS: ATORVASTATIN CA 10 MG TABLET (FP) PO SCH (21:21)
[2023-02-28] MEDS: methylPREDNISolone NA SUCC 40 MG/1 ML VIAL IVPUSH SCH ×3 (02:00→17:05)
[2023-02-28] MEDS: dilTIAZem HCL 30 MG TABLET PO SCH ×3 (05:31→22:08)
[2023-02-28] MEDS: IPRATROPIUM BR 0.02% 0.5 MG/2.5 ML VIAL.NEB. NEB SCH ×4 (07:30→20:05)
[2023-02-28 08:42] LABS: HEMATOCRIT 44.4 % (32.4-45.2); HEMOGLOBIN 14.7 GM/dL (10.7-15.3); MCH 29.1 pg (25.7-33.7); MEAN CELL VOLUME 88.1 fl (80-96); MEAN PLT VOLUME 9.6 fl (7.5-11.1); PLATELET COUNT 255 10^3/uL (134-434); RBC 5.04 M/mm3 (3.60-5.2); RDW 13.9 % (11.6-15.6); WHITE BLOOD COUNT 7.3 K/mm3 (4.0-10.0)
[2023-02-28 09:14] LABS: CALCIUM 9.4 mg/dL (8.5-10.1)
[2023-02-28 09:15] LABS: BLOOD UREA NITROGEN 21.7 mg/dL (7-18); MAGNESIUM 2.8 mg/dL (1.8-2.4)
[2023-02-28 09:18] LABS: CREATININE 0.9 mg/dL (0.55-1.3); PHOSPHOROUS 3.2 mg/dL (2.5-4.9)
[2023-02-28 09:19] LABS: BILIRUBIN,TOTAL 1.1 mg/dL (0.2-1); TOT PROT 7.2 g/dl (6.4-8.2)
[2023-02-28] MEDS: SENNOSIDES 8.6MG TABLET (FP) PO SCH ×2 (09:38→22:07)
[2023-02-28] MEDS: DULoxetine HCL 20 MG CAPSULE.DR PO SCH (09:38)
[2023-02-28] MEDS: metoPROLOL SUCCINATE 25 MG TAB.SR.24H (FP) PO SCH ×2 (09:38→22:07)
[2023-02-28] MEDS: APIXABAN 5 MG TABLET PO SCH ×2 (09:39→22:07)
[2023-02-28] MEDS: guaiFENesin 600 MG TABLET.ER (FP) PO SCH ×2 (09:39→22:07)
[2023-02-28] MEDS: BUDESONIDE/FORMETEROL FUMARATE 160/4.5 mcg INHALER IH SCH ×2 (09:40→22:09)
[2023-02-28] MEDS: PREGABALIN 75 MG CAPSULE PO SCH (22:07)
[2023-02-28] MEDS: ATORVASTATIN CA 10 MG TABLET (FP) PO SCH (22:07)
[2023-03-01] MEDS: methylPREDNISolone NA SUCC 40 MG/1 ML VIAL IVPUSH SCH ×2 (01:53→09:06)
[2023-03-01] MEDS: dilTIAZem HCL 30 MG TABLET PO SCH ×3 (05:55→21:56)
[2023-03-01 08:05] LABS: HEMATOCRIT 41.2 % (32.4-45.2); HEMOGLOBIN 13.7 GM/dL (10.7-15.3); MCH 29.6 pg (25.7-33.7); MCHC 33.4 g/dl (32.0-36.0); MEAN CELL VOLUME 88.7 fl (80-96); MEAN PLT VOLUME 10.2 fl (7.5-11.1); PLATELET COUNT 219 10^3/uL (134-434); RBC 4.64 M/mm3 (3.60-5.2); RDW 13.6 % (11.6-15.6)
[2023-03-01 08:31] LABS: POTASSIUM 4.7 mmol/L (3.5-5.1)
[2023-03-01 08:35] LABS: CALCIUM 8.7 mg/dL (8.5-10.1)
[2023-03-01 08:36] LABS: MAGNESIUM 2.6 mg/dL (1.8-2.4)
[2023-03-01 08:39] LABS: CREATININE 0.7 mg/dL (0.55-1.3); PHOSPHOROUS 3.2 mg/dL (2.5-4.9)
[2023-03-01 08:40] LABS: BILIRUBIN,TOTAL 1.1 mg/dL (0.2-1); TOT PROT 6.4 g/dl (6.4-8.2)
[2023-03-01] MEDS: IPRATROPIUM BR 0.02% 0.5 MG/2.5 ML VIAL.NEB. NEB SCH ×4 (08:40→21:02)
[2023-03-01 08:42] LABS: ALBUMIN 2.6 g/dl (3.4-5.0)
[2023-03-01] MEDS: DULoxetine HCL 20 MG CAPSULE.DR PO SCH (09:05)
[2023-03-01] MEDS: SENNOSIDES 8.6MG TABLET (FP) PO SCH ×2 (09:05→21:57)
[2023-03-01] MEDS: metoPROLOL SUCCINATE 25 MG TAB.SR.24H (FP) PO SCH ×2 (09:05→21:57)
[2023-03-01] MEDS: APIXABAN 5 MG TABLET PO SCH ×2 (09:05→21:57)
[2023-03-01] MEDS: BUDESONIDE/FORMETEROL FUMARATE 160/4.5 mcg INHALER IH SCH ×2 (09:05→21:59)
[2023-03-01] MEDS: guaiFENesin 600 MG TABLET.ER (FP) PO SCH ×2 (09:06→21:56)
[2023-03-01] MEDS ORDERED: LEVALBUTEROL HCL 0.31 MG/3 ML VIAL.NEB IH PRN (10:49)
[2023-03-01] MEDS: POLYETHYLENE GLYCOL (HEALTHYLAX) 3350 17 GM PACKET PO SCH (19:16)
[2023-03-01] MEDS: ATORVASTATIN CA 10 MG TABLET (FP) PO SCH (21:57)
[2023-03-01] MEDS: predniSONE 20 MG TABLET (UD) PO SCH (21:57)
[2023-03-01] MEDS: PREGABALIN 75 MG CAPSULE PO SCH (21:57)
[2023-03-01] MEDS ORDERED: predniSONE 20 MG TABLET (UD) PO SCH (22:00)
[2023-03-02] MEDS: LEVALBUTEROL HCL 0.31 MG/3 ML VIAL.NEB IH SCH ×2 (02:10→20:05)
[2023-03-02] MEDS: dilTIAZem HCL 30 MG TABLET PO SCH ×3 (06:15→21:30)
[2023-03-02] MEDS: IPRATROPIUM BR 0.02% 0.5 MG/2.5 ML VIAL.NEB. NEB SCH ×4 (07:42→20:05)
[2023-03-02 09:41] LABS: HEMATOCRIT 42.6 % (32.4-45.2); HEMOGLOBIN 14.3 GM/dL (10.7-15.3); MCH 29.6 pg (25.7-33.7); MCHC 33.5 g/dl (32.0-36.0); MEAN CELL VOLUME 88.3 fl (80-96); MEAN PLT VOLUME 10.5 fl (7.5-11.1); PLATELET COUNT 226 10^3/uL (134-434); RBC 4.83 M/mm3 (3.60-5.2); RDW 13.9 % (11.6-15.6); WHITE BLOOD COUNT 8.5 K/mm3 (4.0-10.0)
[2023-03-02] MEDS ORDERED: predniSONE 20 MG TABLET (UD) PO SCH ×2 (10:00)
[2023-03-02 10:20] LABS: ALBUMIN 2.7 g/dl (3.4-5.0); BLOOD UREA NITROGEN 21.6 mg/dL (7-18)
[2023-03-02 10:22] LABS: CALCIUM 8.9 mg/dL (8.5-10.1)
[2023-03-02 10:23] LABS: CREATININE 0.7 mg/dL (0.55-1.3); MAGNESIUM 2.6 mg/dL (1.8-2.4); PHOSPHOROUS 2.8 mg/dL (2.5-4.9)
[2023-03-02 10:25] LABS: BILIRUBIN,TOTAL 1.7 mg/dL (0.2-1); TOT PROT 6.8 g/dl (6.4-8.2)
[2023-03-02] MEDS: SENNOSIDES 8.6MG TABLET (FP) PO SCH ×2 (10:37→21:30)
[2023-03-02] MEDS: metoPROLOL SUCCINATE 25 MG TAB.SR.24H (FP) PO SCH ×2 (10:38→21:28)
[2023-03-02] MEDS: DULoxetine HCL 20 MG CAPSULE.DR PO SCH (10:38)
[2023-03-02] MEDS: predniSONE 20 MG TABLET (UD) PO SCH ×2 (10:38→21:28)
[2023-03-02] MEDS: POLYETHYLENE GLYCOL (HEALTHYLAX) 3350 17 GM PACKET PO SCH (10:39)
[2023-03-02] MEDS: APIXABAN 5 MG TABLET PO SCH ×2 (10:39→21:30)
[2023-03-02] MEDS: guaiFENesin 600 MG TABLET.ER (FP) PO SCH ×2 (10:39→21:28)
[2023-03-02] MEDS: BUDESONIDE/FORMETEROL FUMARATE 160/4.5 mcg INHALER IH SCH ×2 (10:39→21:31)
[2023-03-02] MEDS: ATORVASTATIN CA 10 MG TABLET (FP) PO SCH (21:29)
[2023-03-02] MEDS: PREGABALIN 75 MG CAPSULE PO SCH (21:30)
[2023-03-03] MEDS: dilTIAZem HCL 30 MG TABLET PO SCH ×2 (05:40→14:08)
[2023-03-03 07:18] LABS: HEMATOCRIT 40.3 % (32.4-45.2); HEMOGLOBIN 13.7 GM/dL (10.7-15.3); MCH 29.8 pg (25.7-33.7); MCHC 33.9 g/dl (32.0-36.0); MEAN CELL VOLUME 87.9 fl (80-96); MEAN PLT VOLUME 9.9 fl (7.5-11.1); PLATELET COUNT 202 10^3/uL (134-434); RBC 4.59 M/mm3 (3.60-5.2); RDW 13.7 % (11.6-15.6); WHITE BLOOD COUNT 7.8 K/mm3 (4.0-10.0)
[2023-03-03 07:41] LABS: POTASSIUM 4.6 mmol/L (3.5-5.1)
[2023-03-03 08:09] LABS: ALBUMIN 2.6 g/dl (3.4-5.0); CALCIUM 8.3 mg/dL (8.5-10.1); MAGNESIUM 2.6 mg/dL (1.8-2.4)
[2023-03-03 08:10] LABS: BLOOD UREA NITROGEN 23.6 mg/dL (7-18)
[2023-03-03 08:12] LABS: PHOSPHOROUS 3.2 mg/dL (2.5-4.9)
[2023-03-03 08:13] LABS: CREATININE 0.7 mg/dL (0.55-1.3)
[2023-03-03 08:14] LABS: BILIRUBIN,TOTAL 1.3 mg/dL (0.2-1); TOT PROT 6.3 g/dl (6.4-8.2)
[2023-03-03 08:37] VITALS: RESP 18
[2023-03-03] MEDS: ACETAMINOPHEN 325 MG TABLET (FP) PO PRN (09:31)
[2023-03-03] MEDS: POLYETHYLENE GLYCOL (HEALTHYLAX) 3350 17 GM PACKET PO SCH (09:45)
[2023-03-03] MEDS: IPRATROPIUM BR 0.02% 0.5 MG/2.5 ML VIAL.NEB. NEB SCH ×3 (09:52→17:21)
[2023-03-03] MEDS: LEVALBUTEROL HCL 0.31 MG/3 ML VIAL.NEB IH SCH ×2 (09:52→17:19)
[2023-03-03] MEDS ORDERED: predniSONE 10 MG, predniSONE 20 MG PO SCH (10:00)
[2023-03-03] MEDS ORDERED: NYSTATIN 500,000 UNITS/5 ML SUSPENSION PO SCH (12:00)
[2023-03-03] MEDS: predniSONE 20 MG TABLET (UD) PO SCH ×2 (12:45→14:11)
[2023-03-03] MEDS: APIXABAN 5 MG TABLET PO SCH ×2 (12:45→14:10)
[2023-03-03] MEDS: DULoxetine HCL 20 MG CAPSULE.DR PO SCH ×2 (12:45→14:09)
[2023-03-03] MEDS: guaiFENesin 600 MG TABLET.ER (FP) PO SCH ×2 (12:46→14:08)
[2023-03-03] MEDS: SENNOSIDES 8.6MG TABLET (FP) PO SCH ×2 (12:46→14:13)
[2023-03-03] MEDS: BUDESONIDE/FORMETEROL FUMARATE 160/4.5 mcg INHALER IH SCH ×2 (12:46→14:19)
[2023-03-03] MEDS: metoPROLOL SUCCINATE 25 MG TAB.SR.24H (FP) PO SCH ×2 (12:46→14:12)
[2023-03-03 16:00] VITALS: BP 121/88; PULSE 85; TEMP 98.4
[2023-03-04] MEDS ORDERED: predniSONE 20 MG TABLET (UD) PO SCH (10:00)
[2023-03-04] MEDS ORDERED: predniSONE 10 MG TABLET (UD) PO SCH (22:00)
[2023-03-05] MEDS ORDERED: predniSONE 10 MG TABLET (UD) PO SCH (10:00)
[2023-03-06] MEDS ORDERED: predniSONE 5 MG TABLET (UD) PO SCH (10:00)
[2023-03-07] MEDS ORDERED: predniSONE 10 MG TABLET (UD) PO SCH (22:00)
[2023-03-10] MEDS ORDERED: predniSONE 5 MG TABLET (UD) PO SCH (22:00)
== END 2023-03-03 17:28 | disposition home or self-care (01) | DRG 178 ==
LOC: JER 18:16 → JERBED 22:30 → J4S 02-20 00:24 → OBSVTOIN 02-22 10:57
PROVIDERS: ADMIT Internal Medicine; ATTEND Internal Medicine
PROC: XW033E5 Introduction of Remdesivir Anti-infective into Peripheral Vein, Percutaneous Approach, New Technology Group 5 (ICD-10-PCS; principal; 2023-02-20)
DX: U07.1 COVID-19 (principal); I48.19 Other persistent atrial fibrillation; I69.354 Hemiplegia and hemiparesis following cerebral infarction affecting left non-dominant side; J45.901 Unspecified asthma with (acute) exacerbation; I50.32 Chronic diastolic (congestive) heart failure; I11.0 Hypertensive heart disease with heart failure; K76.0 Fatty (change of) liver, not elsewhere classified; E78.5 Hyperlipidemia, unspecified; F32.A Depression, unspecified; E66.8 Other obesity; Z68.39 Body mass index [BMI] 39.0-39.9, adult; I27.20 Pulmonary hypertension, unspecified; E86.0 Dehydration; I08.1 Rheumatic disorders of both mitral and tricuspid valves; B37.9 Candidiasis, unspecified
CPT/HCPCS: 0241U-QW; 36415; 71045-TC-FY; 80048; 80053; 82248; 82550; 83010; 83615; 83735; 84100; 84484; 85025; 85027; 93005; 93010; 94010; 94640; 94761; 97116-GP; 97161-GP; 99285-25; G0378; J0248

== ENCOUNTER 2023-05-19 18:33 | Inpatient (IN) | payer OTHER, BC ==
[2023-05-19 18:41] VITALS: BMI 38.9
[2023-05-19 19:53] LABS: BASO % 0.1 % (0-2.0); EOS % 0.3 % (0-4.5); HEMATOCRIT 40.6 % (32.4-45.2); HEMOGLOBIN 13.8 GM/dL (10.7-15.3); LYMPH % 19.4 % (8-40); MCH 30.5 pg (25.7-33.7); MEAN CELL VOLUME 89.6 fl (80-96); MEAN PLT VOLUME 9.1 fl (7.5-11.1); MONO % 10.1 % (3.8-10.2); NEUT % 70.1 % (42.8-82.8); PLATELET COUNT 228 10^3/uL (134-434); RBC 4.53 M/mm3 (3.60-5.2); RDW 15.2 % (11.6-15.6); WHITE BLOOD COUNT 8.2 K/mm3 (4.0-10.0)
[2023-05-19 20:07] LABS: INR 1.17 (0.83-1.09); PROTHROMBIN TIME (PATIENT) 13.6 SEC (9.7-13.0)
[2023-05-19 20:10] LABS: ACTIVATED PTT 32.1 SECONDS (25.2-36.5)
[2023-05-19 20:41] LABS: CALCIUM 9.7 mg/dL (8.5-10.1)
[2023-05-19 20:42] LABS: ALBUMIN 3.8 g/dl (3.4-5.0); BLOOD UREA NITROGEN 23.4 mg/dL (7-18); MAGNESIUM 2.5 mg/dL (1.8-2.4)
[2023-05-19 20:45] LABS: CREATININE 0.9 mg/dL (0.55-1.3); PHOSPHOROUS 3.8 mg/dL (2.5-4.9)
[2023-05-19 20:47] LABS: BILIRUBIN,TOTAL 1.6 mg/dL (0.2-1)
[2023-05-19] MEDS ORDERED: ACETAMINOPHEN INJECTION 100 ML IVPB ONE (20:48)
[2023-05-19] MEDS: ACETAMINOPHEN 1000 MG/100 ML BAG IVPB ONE (20:54)
[2023-05-19] MEDS: SODIUM CHLORIDE 0.9% 500 ML INFUS.BAG IV ONE (21:18)
[2023-05-20] MEDS ORDERED: METOCLOPRAMIDE HCL INJECTION 10 MG/2 ML VIAL ONE (00:18)
[2023-05-20] MEDS ORDERED: MAG HYDROX/AL HYDROX/SIMETH 30 ML UNIT-DOSE CUP ONE (00:19)
[2023-05-20] MEDS ORDERED: MAGNESIUM CITRATE 300 ML BOTTLE ONE (00:19)
[2023-05-20] MEDS ORDERED: FAMOTIDINE 20 MG/50 ML IVPB 20 MG/50 ML MG IVPB ONE (00:19)
[2023-05-20] MEDS: MAGNESIUM CITRATE 300 ML BOTTLE PO ONE (00:40)
[2023-05-20] MEDS: MAG HYDROX/AL HYDROX/SIMETH 30 ML UNIT-DOSE CUP PO ONE (00:41)
[2023-05-20] MEDS: FAMOTIDINE 20 MG/50 ML IVPB 20 MG/50 ML MG IVPB ONE (00:41)
[2023-05-20] MEDS: MINERAL OIL ENEMA 133 ML ENEMA RC ONE ×2 (00:41→05:46)
[2023-05-20] MEDS: METOCLOPRAMIDE HCL INJECTION 10 MG/2 ML VIAL IVPUSH ONE (00:41)
[2023-05-20] MEDS ORDERED: MAGNESIUM CITRATE 300 ML BOTTLE PO PRN (02:18)
[2023-05-20] MEDS ORDERED: METOCLOPRAMIDE HCL INJECTION 10 MG/2 ML VIAL IVPUSH PRN (02:18)
[2023-05-20] MEDS ORDERED: MAG HYDROX/AL HYDROX/SIMETH 30 ML UNIT-DOSE CUP PO PRN (02:18)
[2023-05-20] MEDS: SODIUM CHLORIDE 1,000 ML IV SCH (04:06)
[2023-05-20] MEDS: POLYETHYLENE GLYCOL (HEALTHYLAX) 3350 17 GM PACKET PO SCH (05:19)
[2023-05-20] MEDS ORDERED: NORMAL SALINE FLUSH 0.9% 5 ML SYRINGE IVPUSH ONE (06:50)
[2023-05-20] MEDS: SODIUM CHLORIDE 0.9% 500 ML INFUS.BAG IV ONE ×2 (06:58→10:27)
[2023-05-20 07:32] LABS: BASO % 0.2 % (0-2.0); EOS % 0.5 % (0-4.5); HEMATOCRIT 36.4 % (32.4-45.2); HEMOGLOBIN 12.2 GM/dL (10.7-15.3); LYMPH % 26.1 % (8-40); MCH 30.3 pg (25.7-33.7); MCHC 33.3 g/dl (32.0-36.0); MEAN PLT VOLUME 9.3 fl (7.5-11.1); MONO % 9.6 % (3.8-10.2); NEUT % 63.6 % (42.8-82.8); PLATELET COUNT 192 10^3/uL (134-434); RBC 4.01 M/mm3 (3.60-5.2); RDW 15.1 % (11.6-15.6)
[2023-05-20 07:40] LABS: POTASSIUM 4.5 mmol/L (3.5-5.1)
[2023-05-20 07:45] LABS: CALCIUM 8.8 mg/dL (8.5-10.1)
[2023-05-20 07:46] LABS: ALBUMIN 3.1 g/dl (3.4-5.0); BLOOD UREA NITROGEN 16.1 mg/dL (7-18); MAGNESIUM 2.7 mg/dL (1.8-2.4)
[2023-05-20 07:49] LABS: CREATININE 0.7 mg/dL (0.55-1.3); PHOSPHOROUS 3.3 mg/dL (2.5-4.9)
[2023-05-20 07:51] LABS: BILIRUBIN,TOTAL 1.8 mg/dL (0.2-1); TOT PROT 6.6 g/dl (6.4-8.2)
[2023-05-20] MEDS ORDERED: LEVALBUTEROL HCL 0.31 MG/3 ML VIAL.NEB IH ONE ×2 (08:15→17:39)
[2023-05-20] MEDS: LEVALBUTEROL HCL 0.31 MG/3 ML VIAL.NEB IH SCH (08:33)
[2023-05-20] MEDS: APIXABAN 5 MG TABLET PO SCH (09:10)
[2023-05-20] MEDS: DULoxetine HCL 20 MG CAPSULE.DR PO SCH (09:10)
[2023-05-20] MEDS ORDERED: ACETAMINOPHEN 325 MG TABLET (FP) ONE ×2 (09:16→20:55)
[2023-05-20] MEDS: ACETAMINOPHEN 325 MG TABLET (FP) PO ONE (09:22)
[2023-05-20] MEDS ORDERED: FAMOTIDINE 20 MG TABLET PO SCH (10:00)
[2023-05-20] MEDS ORDERED: MAGNESIUM CITRATE 300 ML BOTTLE PO SCH (10:00)
[2023-05-20] MEDS ORDERED: SODIUM CHLORIDE 1,000 ML IV SCH (10:30)
[2023-05-20] MEDS ORDERED: POLYETHYLENE GLYCOL (HEALTHYLAX) 3350 17 GM PACKET ONE ×2 (14:44→22:14)
[2023-05-20] MEDS ORDERED: dilTIAZem HCL 50 MG/10 ML - 10 ML VIAL ONE (18:42)
[2023-05-20] MEDS ORDERED: METOPROLOL TARTRATE 5 MG/5 ML VIAL ONE (18:50)
[2023-05-20] MEDS: dilTIAZem HCL 50 MG/10 ML - 10 ML VIAL IVPUSH ONE (19:03)
[2023-05-20] MEDS: METOPROLOL TARTRATE 5 MG/5 ML VIAL IVPUSH ONE (19:03)
[2023-05-20] MEDS ORDERED: MAGNESIUM SULFATE IN WATER 2 GM/50 ML IVPB IVPB ONE (19:10)
[2023-05-20] MEDS ORDERED: AMIODARONE IN DEXTROSE,ISO-OSM 150 MG/100 ML BAG ONE (19:14)
[2023-05-20] MEDS: AMIODARONE HCL 150 MG/3 ML VIAL IVPUSH ONE (19:34)
[2023-05-20] MEDS ORDERED: ATORVASTATIN CA 10 MG TABLET (FP) ONE (20:55)
[2023-05-20] MEDS ORDERED: APIXABAN 5 MG TABLET ONE (20:55)
[2023-05-20] MEDS: ACETAMINOPHEN 325 MG TABLET (FP) PO PRN (21:00)
[2023-05-20] MEDS: ATORVASTATIN CA 10 MG TABLET (FP) PO SCH (21:00)
[2023-05-20] MEDS ORDERED: PREGABALIN 25 MG CAPSULE ONE (22:14)
[2023-05-20] MEDS ORDERED: PREGABALIN 50 MG CAPSULE ONE (22:14)
[2023-05-20] MEDS: PREGABALIN 25 MG CAPSULE PO SCH (22:21)
[2023-05-21] MEDS ORDERED: dilTIAZem HCL 30 MG TABLET ONE (06:37)
[2023-05-21] MEDS: dilTIAZem HCL 30 MG TABLET PO SCH (06:44)
[2023-05-21] MEDS ORDERED: POLYETHYLENE GLYCOL (HEALTHYLAX) 3350 17 GM PACKET ONE (06:45)
[2023-05-21 07:37] LABS: HEMATOCRIT 37.2 % (32.4-45.2); HEMOGLOBIN 12.2 GM/dL (10.7-15.3); MCH 30.1 pg (25.7-33.7); MCHC 32.9 g/dl (32.0-36.0); MEAN CELL VOLUME 91.4 fl (80-96); MEAN PLT VOLUME 10.1 fl (7.5-11.1); PLATELET COUNT 197 10^3/uL (134-434); RBC 4.07 M/mm3 (3.60-5.2); RDW 15.1 % (11.6-15.6); WHITE BLOOD COUNT 6.8 K/mm3 (4.0-10.0)
[2023-05-21 07:51] LABS: POTASSIUM 4.2 mmol/L (3.5-5.1)
[2023-05-21 07:56] LABS: ALBUMIN 3.2 g/dl (3.4-5.0); CALCIUM 9.2 mg/dL (8.5-10.1)
[2023-05-21 07:57] LABS: BLOOD UREA NITROGEN 14.7 mg/dL (7-18)
[2023-05-21 07:59] LABS: CREATININE 0.6 mg/dL (0.55-1.3)
[2023-05-21 08:01] LABS: BILIRUBIN,TOTAL 1.6 mg/dL (0.2-1)
[2023-05-21] MEDS ORDERED: PREGABALIN 75 MG CAPSULE PO SCH (10:00)
[2023-05-21] MEDS ORDERED: MAGNESIUM CITRATE 300 ML BOTTLE PO SCH (10:00)
[2023-05-21] MEDS: KETOROLAC TROMETHAMINE 15 MG/ML VIAL IVPUSH ONE (21:24)
[2023-05-21 21:54] LABS: URINE APPEARANCE CLEAR; URINE BILIRUBIN NEGATIVE (NEGATIVE); URINE COLOR YELLOW; URINE GLUCOSE (UA) NEGATIVE (NEGATIVE); URINE KETONE TRACE (NEGATIVE); URINE LEUK ESTERASE NEGATIVE (NEGATIVE); URINE NITRITE NEGATIVE (NEGATIVE); URINE PROTEIN NEGATIVE (NEGATIVE)
[2023-05-22 10:35] LABS: BASO % 0.3 % (0-2.0); EOS % 1.5 % (0-4.5); HEMATOCRIT 35.9 % (32.4-45.2); HEMOGLOBIN 11.7 GM/dL (10.7-15.3); LYMPH % 28.3 % (8-40); MCH 29.7 pg (25.7-33.7); MCHC 32.4 g/dl (32.0-36.0); MEAN CELL VOLUME 91.5 fl (80-96); MEAN PLT VOLUME 9.7 fl (7.5-11.1); MONO % 8.8 % (3.8-10.2); NEUT % 61.1 % (42.8-82.8); PLATELET COUNT 200 10^3/uL (134-434); RBC 3.93 M/mm3 (3.60-5.2); RDW 15.1 % (11.6-15.6); WHITE BLOOD COUNT 5.2 K/mm3 (4.0-10.0)
[2023-05-22 11:09] LABS: POTASSIUM 4.1 mmol/L (3.5-5.1)
[2023-05-22 11:12] LABS: CALCIUM 8.7 mg/dL (8.5-10.1)
[2023-05-22 11:13] LABS: ALBUMIN 3.1 g/dl (3.4-5.0); BLOOD UREA NITROGEN 17.5 mg/dL (7-18); MAGNESIUM 2.3 mg/dL (1.8-2.4)
[2023-05-22 11:15] LABS: CREATININE 0.7 mg/dL (0.55-1.3); PHOSPHOROUS 3.5 mg/dL (2.5-4.9)
[2023-05-22 11:17] LABS: BILIRUBIN,TOTAL 1.8 mg/dL (0.2-1); TOT PROT 6.6 g/dl (6.4-8.2)
[2023-05-23 07:28] LABS: HEMATOCRIT 34.3 % (32.4-45.2); HEMOGLOBIN 11.9 GM/dL (10.7-15.3); MCH 31.2 pg (25.7-33.7); MCHC 34.5 g/dl (32.0-36.0); MEAN CELL VOLUME 90.2 fl (80-96); MEAN PLT VOLUME 9.6 fl (7.5-11.1); PLATELET COUNT 199 10^3/uL (134-434); RDW 15.1 % (11.6-15.6); WHITE BLOOD COUNT 5.2 K/mm3 (4.0-10.0)
[2023-05-23 07:38] LABS: POTASSIUM 4.6 mmol/L (3.5-5.1)
[2023-05-23 07:46] LABS: CHOLESTEROL 151 mg/dL (50-200)
[2023-05-23 07:47] LABS: LDL CHOLESTEROL (ONLY SJRH) 76 mg/dL (5-100)
[2023-05-23 07:50] LABS: HDL CHOLESTEROL 75 mg/dL (40-60)
[2023-05-23 07:55] LABS: ALBUMIN 3.1 g/dl (3.4-5.0); CALCIUM 9.3 mg/dL (8.5-10.1)
[2023-05-23 07:56] LABS: BLOOD UREA NITROGEN 16.2 mg/dL (7-18)
[2023-05-23 07:57] LABS: BILIRUBIN,TOTAL 1.6 mg/dL (0.2-1); TOT PROT 6.8 g/dl (6.4-8.2)
[2023-05-23 08:03] LABS: CREATININE 0.6 mg/dL (0.55-1.3)
[2023-05-23] MEDS: SODIUM CHLORIDE 500 ML IV STA (11:30)
[2023-05-23] MEDS: SODIUM CHLORIDE 1,000 ML IV SCH (19:17)
[2023-05-23] MEDS: PREGABALIN 25 MG CAPSULE PO SCH (21:14)
[2023-05-23] MEDS: metoPROLOL SUCCINATE 25 MG TAB.SR.24H (FP) PO SCH (21:17)
[2023-05-24 08:08] LABS: HEMOGLOBIN 11.4 GM/dL (10.7-15.3); MCH 30.6 pg (25.7-33.7); MCHC 33.4 g/dl (32.0-36.0); MEAN CELL VOLUME 91.6 fl (80-96); MEAN PLT VOLUME 10.2 fl (7.5-11.1); PLATELET COUNT 189 10^3/uL (134-434); RBC 3.71 M/mm3 (3.60-5.2); RDW 14.7 % (11.6-15.6); WHITE BLOOD COUNT 5.3 K/mm3 (4.0-10.0)
[2023-05-24 08:34] LABS: POTASSIUM 4.2 mmol/L (3.5-5.1)
[2023-05-24 08:40] LABS: CALCIUM 8.8 mg/dL (8.5-10.1)
[2023-05-24 08:41] LABS: ALBUMIN 2.9 g/dl (3.4-5.0); BLOOD UREA NITROGEN 16.4 mg/dL (7-18)
[2023-05-24 08:44] LABS: CREATININE 0.5 mg/dL (0.55-1.3)
[2023-05-24 08:46] LABS: BILIRUBIN,TOTAL 1.3 mg/dL (0.2-1); TOT PROT 6.3 g/dl (6.4-8.2)
[2023-05-25 07:41] LABS: HEMATOCRIT 33.3 % (32.4-45.2); MCH 30.2 pg (25.7-33.7); MCHC 33.1 g/dl (32.0-36.0); MEAN CELL VOLUME 91.3 fl (80-96); MEAN PLT VOLUME 10.3 fl (7.5-11.1); PLATELET COUNT 186 10^3/uL (134-434); RBC 3.64 M/mm3 (3.60-5.2); RDW 14.7 % (11.6-15.6); WHITE BLOOD COUNT 4.6 K/mm3 (4.0-10.0)
[2023-05-25 07:47] LABS: POTASSIUM 4.3 mmol/L (3.5-5.1)
[2023-05-25 08:09] LABS: CALCIUM 8.8 mg/dL (8.5-10.1)
[2023-05-25 08:10] LABS: ALBUMIN 2.8 g/dl (3.4-5.0); BLOOD UREA NITROGEN 10.7 mg/dL (7-18); MAGNESIUM 2.2 mg/dL (1.8-2.4)
[2023-05-25 08:13] LABS: CREATININE 0.5 mg/dL (0.55-1.3); PHOSPHOROUS 3.5 mg/dL (2.5-4.9)
[2023-05-25 08:15] LABS: BILIRUBIN,TOTAL 1.1 mg/dL (0.2-1); TOT PROT 6.1 g/dl (6.4-8.2)
[2023-05-25] MEDS: DIGOXIN 0.25 MG TABLET PO ONE (10:00)
[2023-05-25] MEDS: DIGOXIN 0.5 MG/2 ML AMPUL IVPUSH ONE ×3 (10:10→22:32)
[2023-05-25] MEDS: SODIUM CHLORIDE 1,000 ML IV SCH (10:13)
[2023-05-25] MEDS ORDERED: DIGOXIN 0.125 MG TABLET PO ONE ×2 (16:00→22:00)
[2023-05-25] MEDS ORDERED: ONDANSETRON 4 MG/2 ML VIAL IVPUSH PRN (17:28)
[2023-05-25] MEDS: ONDANSETRON 4 MG/2 ML VIAL IVPUSH ONE (17:56)
[2023-05-26 07:17] LABS: HEMATOCRIT 34.7 % (32.4-45.2); HEMOGLOBIN 11.5 GM/dL (10.7-15.3); MCH 30.3 pg (25.7-33.7); MCHC 33.2 g/dl (32.0-36.0); MEAN CELL VOLUME 91.3 fl (80-96); PLATELET COUNT 188 10^3/uL (134-434); RBC 3.81 M/mm3 (3.60-5.2); RDW 14.5 % (11.6-15.6)
[2023-05-26 07:41] LABS: POTASSIUM 4.2 mmol/L (3.5-5.1)
[2023-05-26 07:47] LABS: ALBUMIN 2.9 g/dl (3.4-5.0); CALCIUM 8.6 mg/dL (8.5-10.1)
[2023-05-26 07:48] LABS: BLOOD UREA NITROGEN 10.7 mg/dL (7-18); MAGNESIUM 2.2 mg/dL (1.8-2.4)
[2023-05-26 07:51] LABS: CREATININE 0.5 mg/dL (0.55-1.3); PHOSPHOROUS 3.6 mg/dL (2.5-4.9)
[2023-05-26 07:52] LABS: TOT PROT 6.4 g/dl (6.4-8.2)
[2023-05-26] MEDS: DIGOXIN 0.125 MG TABLET PO SCH (10:08)
[2023-05-26] MEDS: MIDODRINE HCL 2.5 MG TABLET PO SCH (13:29)
[2023-05-27 07:11] LABS: HEMATOCRIT 34.9 % (32.4-45.2); HEMOGLOBIN 11.4 GM/dL (10.7-15.3); MCH 30.2 pg (25.7-33.7); MCHC 32.8 g/dl (32.0-36.0); MEAN CELL VOLUME 92.1 fl (80-96); MEAN PLT VOLUME 10.6 fl (7.5-11.1); PLATELET COUNT 193 10^3/uL (134-434); RBC 3.79 M/mm3 (3.60-5.2); RDW 14.9 % (11.6-15.6); WHITE BLOOD COUNT 5.2 K/mm3 (4.0-10.0)
[2023-05-27 07:26] LABS: POTASSIUM 4.7 mmol/L (3.5-5.1)
[2023-05-27 07:35] LABS: ALBUMIN 2.8 g/dl (3.4-5.0); BLOOD UREA NITROGEN 10.9 mg/dL (7-18); CALCIUM 8.9 mg/dL (8.5-10.1); MAGNESIUM 2.3 mg/dL (1.8-2.4)
[2023-05-27 07:37] LABS: CREATININE 0.6 mg/dL (0.55-1.3); PHOSPHOROUS 3.5 mg/dL (2.5-4.9)
[2023-05-27 07:39] LABS: BILIRUBIN,TOTAL 1.1 mg/dL (0.2-1); TOT PROT 6.2 g/dl (6.4-8.2)
[2023-05-27 09:56] VITALS: PULSE 66
[2023-05-27 15:30] VITALS: BP 121/79; RESP 18; TEMP 99
== END 2023-05-27 04:15 | DRG 309 ==
LOC: JER 18:33 → JERBED 05-20 00:05 → J4W 05-21 10:55 → OBSVTOIN 05-23 11:24
PROVIDERS: ADMIT Internal Medicine; ATTEND Internal Medicine
DX: I48.19 Other persistent atrial fibrillation (principal); E87.3 Alkalosis; J45.901 Unspecified asthma with (acute) exacerbation; I50.32 Chronic diastolic (congestive) heart failure; K59.00 Constipation, unspecified; F32.A Depression, unspecified; I27.20 Pulmonary hypertension, unspecified; E78.5 Hyperlipidemia, unspecified; Z79.01 Long term (current) use of anticoagulants; Z86.16 Personal history of COVID-19; Z86.73 Personal history of transient ischemic attack (TIA), and cerebral infarction without residual deficits; G47.33 Obstructive sleep apnea (adult) (pediatric); I36.1 Nonrheumatic tricuspid (valve) insufficiency; K59.09 Other constipation; E86.0 Dehydration; K64.4 Residual hemorrhoidal skin tags; E86.1 Hypovolemia; E83.41 Hypermagnesemia; I95.1 Orthostatic hypotension; R42 Dizziness and giddiness; I34.0 Nonrheumatic mitral (valve) insufficiency; I25.10 Atherosclerotic heart disease of native coronary artery without angina pectoris; I11.0 Hypertensive heart disease with heart failure
CPT/HCPCS: 36415; 71045-TC-FY; 74018-TC-FY; 74176-TC; 80053; 80061; 81003; 82272; 83605; 83690; 83735; 84100; 84443; 84484; 85025; 85027; 85610; 85730; 86850; 86900; 86901; 87086; 93005; 93010; 93306-TC; 97116-GP; 97161-GP; 99285-25; G0378; J0131